=== PATIENT | male | born 1950 | race Caucasian/White ===

== ENCOUNTER → 2017-03-14 | Outpatient (CLI) | payer OTHER | LOC: FIMAGING 10:15 | PROVIDERS: ATTEND Physician Assistant | DX: Z13.6 Encounter for screening for cardiovascular disorders (principal) ==

== ENCOUNTER → 2017-03-21 | Outpatient (CLI) | payer OTHER | LOC: FIMAGING 07:35 | PROVIDERS: ATTEND Internal Medicine Pulmonary Disease | DX: R91.8 Other nonspecific abnormal finding of lung field (principal); J43.2 Centrilobular emphysema; J20.9 Acute bronchitis, unspecified ==

== ENCOUNTER 2017-09-01 15:22 | Observation (INO) | payer OTHER ==
--- NOTE | 2017-09-01 15:50 | CPEKG ---
Heart Rate: 93 RR Interval: 645 P-R Interval: 204 QRSD Interval: 78 QT Interval: 372 QTC Interval: 463 P Canvas: 57 QRS Canvas: 27 T Wave Canvas: 40 EKG Severity - ABNORMAL ECG - EKG Impression: SINUS RHYTHM EKG Impression: LEFT ATRIAL ABNORMALITY Electronically Signed By: Shelbi Harrison 01-Sep-2017 22:32:53
[2017-09-01] MEDS ORDERED: methylPREDNISolone SOD SUCC 125 MG/2 ML VIAL IVP ONE (16:05)
[2017-09-01] MEDS ORDERED: IPRATROPIUM/ALBUTEROL 3 ML DEYVIAL IH ONE (16:05)
--- NOTE | 2017-09-01 16:06 | EDPHY ---
H & P Time Seen by Provider: 09/01/17 15:51 HPI/ROS: CHIEF COMPLAINT: Shortness of breath HISTORY OF PRESENT ILLNESS: Patient is a 67-year-old male with a history of emphysema, current smoker, who presents emergency department increasing shortness of breath since this morning. Patient states he has had intermittent episodes of increased shortness of breath over the past few days but his symptoms significantly started at 11:00 a.m.. Patient uses inhalers at home. He does not use nebulizer. He is not currently on steroid. Patient has a concentrator at home. He felt progressively short of breath and weak. No chest pain. No nausea or vomiting. REVIEW OF SYSTEMS: My complete review of systems is negative except as mentioned in the HPI. Past Medical/Surgical History: Includes emphysema Smoking Status: Current every day smoker Physical Exam: 36.4, 146/95, 120, 20, 80% on concentrator GENERAL: Well-appearing, in no acute distress, alert. HEENT: Eyes normal to inspection, normal pharynx, no signs of dehydration. NECK: No thyromegaly, no lymphadenopathy, supple. RESPIRATORY: Mild increased work of breathing. Poor air movement, no rales, rhonchi or wheezing. CVS: Regular rate and rhythm, no rubs, murmurs, or gallops. ABDOMEN: Soft, nontender, nondistended, no organomegaly. BACK: Normal to inspection, no CVA tenderness. SKIN: Normal color, no rash, warm, dry. No pallor. EXTREMITIES: No pedal edema, no calf tenderness, no Homans sign or cords, no joint swelling. NEURO/PSYCH: Alert and oriented, normal mood and affect, normal motor sensory exam. No obvious cranial nerve deficit. Constitutional: Initial Vital Signs Temperature (C) 36.4 C 09/01/17 15:36 Heart Rate 120 H 09/01/17 15:36 Respiratory Rate 20 09/01/17 15:36 Blood Pressure 146/95 H 09/01/17 15:36 O2 Sat (%) 80 L 09/01/17 15:36 O2 Delivery Mode Oxymizer O2 (L/minute) 6 Allergies/Adverse Reactions: No Known Allergies Allergy (Unverified 09/01/17 15:34) Home Medications: Medication Instructions Recorded Albuterol 09/01/17 Aspirin 09/01/17 Spiriva Handihaler 09/01/17 Vitamin B-12 09/01/17 Xanax 09/01/17 Medical Decision Making - Diagnostics Imaging Results: Imaging Impressions Chest X-Ray 09/01/17 16:06 Impression: Bilateral lower lobe infiltrates, pulmonary edema versus pneumonia. Mild cardiac enlargement.. ED Course/Re-evaluation: In the emergency department I discussed possible etiologies with the patient. I answered all her questions. Oxygen saturation improved into the low 90s on a simple mask. The patient was given a DuoNeb and Solu-Medrol 125 mg IV. Laboratory studies, EKG and chest x-ray were ordered. EKG shows normal sinus rhythm, normal rate, normal axis, normal intervals. There are no ST or T-wave abnormalities. EKG is normal as interpreted by me. Patient's chemistry panel was notable for no a did carbon dioxide of 36. Patient's anion gap was 10. Patient's BNP was 152. Chest x-ray: Please refer the dictated report. The patient has bilateral lower lobe infiltrate versus CHF. I discussed the results with the patient. I answered all his questions. The patient was noted to have a BNP of 152. I think this is more likely infiltrate. Patient was given azithromycin and Rocephin IV. I discussed the case with Dr. Khan from the hospital service. He will admit the patient. Differential Diagnosis: My differential includes but is not limited to emphysema, is COPD exacerbation, pneumonia, bronchitis, pneumothorax, empyema, ACS, acute AK, P, CHF - Data Points Laboratory Results: Laboratory Results 09/01/17 15:50 09/01/17 15:50 09/01/17 09/01/17 09/01/17 16:50 15:50 15:50 WBC 7.19 10^3/uL 10^3/uL (3.80-9.50) RBC 5.66 10^6/uL 10^6/uL (4.40-6.38) Hgb 17.7 g/dL H g/dL (13.7-17.5) Hct 53.3 % H % (40.0-51.0) MCV 94.2 fL fL (81.5-99.8) MCH 31.3 pg pg (27.9-34.1) MCHC 33.2 g/dL g/dL (32.4-36.7) RDW 13.2 % % (11.5-15.2) Plt Count 254 10^3/uL 10^3/uL (150-400) MPV 8.9 fL fL (8.7-11.7) Neut % (Auto) 65.9 % % (39.3-74.2) Lymph % (Auto) 19.3 % % (15.0-45.0) [place]ack[place]ord % (Auto) 12.1 % % (4.5-13.0) Eos % (Auto) 1.8 % % (0.6-7.6) Baso % (Auto) 0.8 % % (0.3-1.7) Nucleat RBC Rel Count 0.0 % % (0.0-0.2) Absolute Neuts (auto) 4.73 10^3/uL 10^3/uL (1.70-6.50) Absolute Lymphs (auto) 1.39 10^3/uL 10^3/uL (1.00-3.00) Absolute Monos (auto) 0.87 10^3/uL H 10^3/uL (0.30-0.80) Absolute Eos (auto) 0.13 10^3/uL 10^3/uL (0.03-0.40) Absolute Basos (auto) 0.06 10^3/uL 10^3/uL (0.02-0.10) Absolute Nucleated RBC 0.00 10^3/uL 10^3/uL (0-0.01) Immature Gran % 0.1 % % (0.0-1.1) Immature Gran # 0.01 10^3/uL 10^3/uL (0.00-0.10) VBG Lactic Acid 0.6 mmol/L L mmol/L (0.7-2.1) Sodium 141 mEq/L mEq/L (135-145) Potassium 4.1 mEq/L mEq/L (3.3-5.0) Chloride 95 mEq/L L mEq/L (97-110) Carbon Dioxide 36 mEq/l H mEq/l (22-31) Anion Gap 10 mEq/L mEq/L (8-16) BUN 9 mg/dL mg/dL (7-23) Creatinine 0.7 mg/dL mg/dL (0.7-1.3) Estimated GFR > 60 Glucose 112 mg/dL H mg/dL (70-100) Calcium 9.1 mg/dL mg/dL (8.5-10.4) NT-Pro-B Natriuret Pep 152 pg/mL H pg/mL (0-125) Medications Given: Discontinued Medications Albuterol/Ipratropium (Duoneb) 3 ml IH EDNOW ONE Stop: 09/01/17 16:06 Last Admin: 09/01/17 16:25 Dose: 3 ml Methylprednisolone Sodium Succinate (Solu-Medrol) 125 mg IVP EDNOW ONE Stop: 09/01/17 16:06 Last Admin: 09/01/17 16:25 Dose: 125 mg Departure - Departure Disposition: [facility] Acute Clinical Impression: Dyspnea Qualifiers: Dyspnea type: unspecified Qualified Code(s): R06.00 - Dyspnea, unspecified Pneumonia of both lower lobes Qualifiers: Pneumonia type: due to unspecified organism Qualified Code(s): J18.1 - Lobar pneumonia, unspecified organism Condition: Good Referrals: Lisandro Glasgow MD [Primary Care Provider] - As per Instructions
[2017-09-01 16:12] LABS: PLATELET COUNT 254 10^3/uL (150-400)
[2017-09-01] MEDS ORDERED: AZITHROMYCIN IV 500 MG in NS 250 ML IV ONE (17:11)
[2017-09-01] MEDS ORDERED: ONDANSETRON DISINTEGRATING 4 MG TAB PO PRN (17:42)
[2017-09-01] MEDS ORDERED: ONDANSETRON 4 MG/2 ML VIAL IVP PRN (17:42)
[2017-09-01] MEDS ORDERED: ALBUTEROL 3 ML DEYVIAL IH PRN (17:42)
[2017-09-01] MEDS ORDERED: ACETAMINOPHEN 325 MG TAB PO PRN (17:42)
--- NOTE | 2017-09-01 18:19 | GHP ---
[f rep st] HISTORY AND PHYSICAL DATE OF ADMISSION: 09/01/2017 CHIEF COMPLAINT: Short of breath. HISTORY OF PRESENT ILLNESS: This is a 67-year-old man who presents with a few days of increasing thad rtness of breath. He has underlying COPD, is continuing to smoke, has a 3 L oxygen requirement at [facility]. He denied any cough or fevers. He got acutely worse when he was watering his yard today. T hus he presented to the emergency department. He was reported to be at 70% on the standard normal 3 L when he presented to the ED. He is not on chronic steroids. He tells me he feels better now after the initial treatments in the emergency department. He has been using all of his inhalers as prescr ibed. He has not increased his inhaler usage. PAST MEDICAL/SURGICAL HISTORY: 1. COPD. 2. Chronic respiratory failure on 3 L of oxygen. 3. Orthopedic surgeries. 4. Two hernia surgeries. MEDICATIONS: Please see medication reconciliation. ALLERGIES: No known drug allergies. FAMILY HISTORY: No COPD. SOCIAL HISTORY: He is accompanied by his . He rarely drinks. He smokes as above. He is trying to quit down. REVIEW OF SYSTEMS: A 10-point review of systems is conducted and is negative except per HPI. PHYSICAL EXAM: VITAL SIGNS: Blood pressure 148/94, heart rate 85, respiration rate 16, saturating 9 2% on 6 L Oxymizer. Temperature 36.4. GENERAL: The patient is a pleasant man who looks slightly dys pneic lying in bed. HEENT: Shows him to be normocephalic, atraumatic. He has a simple face mask on . CARDIOVASCULAR: Shows a regular rate and rhythm. No murmurs, rubs, or gallops. PULMONARY: Show s very markedly diminished breath sounds in the bilateral lungs. He has scant rhonchi as well as sca nt expiratory wheezes. ABDOMEN: Soft, nontender, nondistended. He has a nontender easily reducible hernia. SKIN: Showed no rash. : Showed no Moreno. NEUROLOGIC: Shows him to be alert and orien aditya x3. He is moving all extremities. PSYCHIATRIC: Shows normal mood and affect. LABS: Hematocrit is 53.3. Lactate is 0.6. Bicarb is 36, creatinine 0.7. BNP is 152. DATA: 1. I discussed this with Dr. Harrison. Will admit to med/surg. 2. I personally viewed and interpreted his EKG. This shows sinus rhythm. There is nothing ischemic here. 3. I personally viewed and interpreted a chest x-ray. This shows bilateral basilar infiltrates. IMPRESSION AND PLAN: 1. Chronic obstructive pulmonary disease exacerbation with acute on chronic hypoxic and hypercapnic respiratory failure: No clear precipitant. Will check a viral PCR. He gives a mild history of aspi ration. Will have Speech Language Pathology evaluate him. Will give him treatment with steroids, in halers. Will monitor his oxygen. He is on baseline of 3 L. 2. Suspected a community-acquired pneumonia: He had bilateral basilar infiltrates and a low BNP. I suspect that this may be an aspiration event. He is on Rocephin as well as azithromycin. Yanira Lobo will see him. 3. Tobacco use: I strongly encouraged cessation. 4. Code status: He would like to be full code, full tube. /[id number]/MODL
[2017-09-01] MEDS ORDERED: IPRATROPIUM/ALBUTEROL 3 ML DEYVIAL IH SCH (21:00)
[2017-09-01] MEDS ORDERED: IBUPROFEN 200 MG TAB PO PRN (22:49)
[2017-09-01 22:59] VITALS: BP 140/83
[2017-09-02] MEDS ORDERED: ASPIRIN EC 81 MG TAB PO SCH (09:00)
[2017-09-02] MEDS ORDERED: ENOXAPARIN 40 MG/0.4 ML SYR SC SCH (09:00)
[2017-09-02] MEDS ORDERED: predniSONE 20 MG TAB PO SCH (09:00)
[2017-09-02] MEDS ORDERED: ALPRAZolam 0.25 MG TAB PO SCH (09:00)
[2017-09-02] MEDS ORDERED: AZITHROMYCIN IV 500 MG in NS 250 ML IV SCH (09:00)
[2017-09-02] MEDS ORDERED: Tiotropium Bromide [Spiriva Respimat] 2.5 MCG IH SCH (09:00)
[2017-09-02] MEDS ORDERED: CYANO/VITAMIN B12 1000 MCG TAB PO SCH (09:00)
[2017-09-02 20:56] LABS: PLATELET COUNT 254 10^3/uL (150-400)
--- NOTE | 2017-09-02 22:32 | GDS ---
[f rep st] DISCHARGE SUMMARY DISCHARGE DIAGNOSES: 1. Chronic obstructive pulmonary disease exacerbation. 2. [id number]-[id number] respiratory failure. 3. Possible pneumonia. HISTORY: The patient is a 67-year-old male with known COPD, with chronic respiratory failure. He we ars 3 L of oxygen at home; however, he has a home pulse ox meter, and his sats normally run only abou t 80% on his typical 3 L. That is his baseline. He does not turn his oxygen up higher because the n oise that is created from the higher flow oxygen makes it so that he cannot sleep. 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 He presented to the hospital. Did have a mild COPD exacerbation with possible pneumonia, altho ugh him and his feel pretty confident that it was really just over exerting himself in the yard is what caused his acute decline. He was admitted to observation overnight and rapidly went back to his baseline shortness of breath. They were very anxious for discharge. He was advised regarding in creasing his home oxygen to maintain a saturation closer to 88% to 91% on O2. That is going to requi re 5 L. He does not mind the 5 L during the day. It only bothers him at night. Here, he wore a fac e mask for the 5 L and tolerated that just fine. He was given a face mask at discharge so he can con tinue at that level. He did present with a polycythemia, which is consistent with his chronic hypoxe jim. He is discharged with a short course of oral prednisone and a Z-Dell for antibiotic, although I am not convinced he had a pneumonia. DISCHARGE MEDICATIONS: Please see computer record for a full detailed list. NEW MEDICATIONS: 1. Prednisone 40 mg p.o. daily x5 days. 2. Z-Dell take as directed. 3. Advair 250/50 one puff b.i.d. 4. Albuterol 2 puffs q.4 hours as needed for shortness of breath. 5. He will continue on his Spiriva, as he was prior to admission. ADDITIONAL DISCHARGE INSTRUCTIONS: 1. Increased oxygen to 5 L chronically. 2. Follow up with Primary Care. Greater than 30 minutes' time was spent arranging this discharge. Patient seen and examined by me on the day of discharge. /[id number]/MODL
== END 2017-09-02 14:15 | disposition home or self-care (01) ==
LOC: F3E 18:18
PROVIDERS: ADMIT Student in an Organized Health Care Education/Training Program; ATTEND Internal Medicine
DX: J44.1 Chronic obstructive pulmonary disease with (acute) exacerbation (principal); J96.21 Acute and chronic respiratory failure with hypoxia; J96.22 Acute and chronic respiratory failure with hypercapnia; R91.8 Other nonspecific abnormal finding of lung field; F17.210 Nicotine dependence, cigarettes, uncomplicated; Z99.81 Dependence on supplemental oxygen
CPT/HCPCS: 71046; 93005; G0378; J0456; J0696; J2930; 96374

== ENCOUNTER → 2018-02-28 | Outpatient (CLI) | payer OTHER | LOC: FIMAGING 12:21 | PROVIDERS: ATTEND Internal Medicine Pulmonary Disease | DX: R91.1 Solitary pulmonary nodule (principal); J43.2 Centrilobular emphysema ==

== ENCOUNTER → 2018-09-15 | Outpatient (CLI) | payer OTHER | LOC: FIMAGING 10:03 ==